=== PATIENT | female | born 1940 | race Caucasian/White ===

== ENCOUNTER 2017-07-20 20:43 | Inpatient (IN) | payer MEDICARE, BC, SELFPAY ==
[2017-07-20 20:44] VITALS: BP 191/126; PULSE 118; RESP 38; TEMP 37.6; O2SAT 75; BMI 30.8
[2017-07-20 20:48] VITALS: O2SAT 94
--- NOTE | 2017-07-20 20:49 | NURSING ---
RN CALLED FOR EKG, PULLED OLD EKG'S FOR
--- NOTE | 2017-07-20 21:07 | EKG12_ITS ---
Test Reason : CP Blood Pressure : / mmHG Vent. Rate : 116 BPM Atrial Rate : 116 BPM P-R Int : 148 ms QRS Dur : 082 ms QT Int : 280 ms P-R-T Axes : 017 -13 041 degrees QTc Int : 389 ms Sinus tachycardia with Premature atrial complexes Otherwise normal ECG Confirmed by SIGRID DILL ([id number]), rewrite editor ZAKIYA MORENO ([id number] on 07/23/2017 7:35:29 AM Referred By: CHANDU/ Confirmed By:SIGRID DILL
--- NOTE | 2017-07-20 21:07 | RAD_ITS ---
STUDY: X-RAY CHEST REASON FOR EXAM: Female, 76 years old. Shortness of breath, chest pain TECHNIQUE: PA and lateral views of the chest. COMPARISON: Previous study of 07/18/2017 FINDINGS: hospital monitor leads are present. There is a very poor inspiration. The left hemidiaphragm is markedly elevated. There is left basilar atelectasis. There is again noted gaseous distention of the stomach. There is no demonstrated pleural abnormality. Normal size heart. Normal mediastinum and yaneth. Normal visualized pulmonary arteries. There are calcified plaques of the aortic arch. Normal visualized thoracic spine. Normal visualized ribs, clavicles, and shoulders. A pigtail catheter is seen in the mid abdominal region. RAD/Chest 1 View (Portable) IMPRESSION: Very poor inspiration. Marked elevation of the left hemidiaphragm. Left basilar atelectasis. Gaseous distention of the stomach. Calcified plaques of the aortic arch. Chest findings are stable in the interval. Electronically Signed: Carlos Holguin MD at 21:58 EST , Service support ,
[2017-07-20 21:10] VITALS: O2SAT 93
[2017-07-20 21:31] LABS: Allen Test POS; Base Excess 1 mmol/L (-2 to +2); Bicarbonate 26.1 mmol/L (22-26); Blood Gas Specimen Type ART; O2 Delivery Device Nasal Can; PO2 67 mmHG (75-100); SITE R Radial; SO2 93 % (95-99); Time Given 2120; Total Carbon Dioxide 27 mmol/L; pCO2 44.1 mmHg (35-45); pH 7.38 (7.35-7.45)
[2017-07-20] MEDS: 0.9% Normal Saline 1,000 ML 1000 ML IV (21:39)
[2017-07-20 21:57] LABS: Absolute Lymphocyte Count 0.43 X10^3/ul (0.83-4.51); Absolute Neutrophil Count 23.3 X10^3/uL (2.0-7.7); Basophil# 0.01 X10^3/uL; Eosinophil# 0.01 X10^3/uL; Hemoglobin 11.2 g/dl (12.0-15.0); Lymphocyte # 0.43 X10^3/ul (4.0); Lymphocyte % 1.8 % (19-41); Mean Corpuscular Hgb 29.4 pg (27.0-32.0); Mean Corpuscular Volume 91.9 fL (81-99); Mean Platelet Vol. 10.8 fl (6.2-12.0); Monocyte# 0.41 X10^3/uL; Monocyte% 1.7 % (0-10); Neutrophil # 23.28 X10^3/uL (2.7-7.7); Neutrophil % 96.3 % (47-70); Platelet Count 266 K/mm3 (150-450); RBC Distribution Width CV 16.7 % (11.6-14.6); RBC Distribution Width SD 55.5 fl (35.1-43.9); Red Blood Count 3.81 M/mm3 (4.2-5.4); White Blood Count 24.2 K/mm3 (4.4-11.0)
[2017-07-20 21:59] LABS: International Normalized Ratio 1.9; Prothrombin Time (Protime)PT. 20.9 SECONDS (11.7-14.9)
[2017-07-20 22:00] LABS: Partial Thromboplast Time 54.6 Seconds (24.1-36.2)
[2017-07-20 22:03] LABS: Differential Indicated SCAN CRITERIA MET; POSITIVE COUNT NO; POSITIVE DIFFERENTIAL YES; POSITIVE MORPHOLOGY NO
--- NOTE | 2017-07-20 22:04 | CT_ITS ---
STUDY: CTA CHEST REASON FOR EXAM: Female, 76 years old. Chest pain, shortness of breath, elevated white blood count, upper arm DVTs RADIATION DOSAGE (If Supplied By Facility): CTDIvol = ( 8.83 ) mGy, DLP = ( 298.21 ) mGycm TECHNIQUE: The examination was performed with the intravenous administration of 75ML ml of Isovue 370 contrast material. Post-processing of the angiographic images was performed, with multiplanar reformation and 3D reconstruction. Individualized dose optimization techniques were used for this CT. COMPARISON: Prior study of 07/19/2017 FINDINGS: Normal enhancement of the main pulmonary artery and right and left pulmonary arteries. Normal enhancement of the bilateral peripheral pulmonary arteries. There is no demonstrated pulmonary embolism. There is tortuosity of the thoracic aorta. The ascending thoracic aorta is ectatic measuring up to 3.6 cm in diameter. There is no demonstrated aortic dissection. Normal heart and pericardium. There is again noted a subcarinal node measuring approximately 1.7 cm in short axis. Normal hilar regions. Normal visualized trachea and bronchi. There is a very poor inspiration. There is a markedly elevated left hemidiaphragm with underlying gaseous distention of the stomach. There is again noted a 1.2 cm nodule of the medial left upper lobe. Normal pleura. Normal chest wall structures. There are degenerative changes of the visualized thoracolumbar spine. There is old compression deformity with sclerosis of the superior endplate of L1. There is again demonstrated a large cystic focus of the left upper abdomen most likely representing a renal cyst. There are again noted innumerable low-attenuation foci involving the bulk of the hepatic parenchyma consistent with extensive metastatic disease. Status post cholecystectomy. The right kidney is atrophic and demonstrates numerous cysts. CT/CTA Chest W/WO Contrast IMPRESSION: 1. There is no evidence of pulmonary embolism. 2. There is a very poor inspiration. There is a markedly elevated left hemidiaphragm with underlying gaseous distention of the stomach. 3. There are again noted innumerable low-attenuation foci involving the bulk of the hepatic parenchyma consistent with extensive metastatic disease. 4. Other findings as reported above. Findings are similar to the previous day's study. Electronically Signed: Carlos Holguin MD at 23:52 EST , Service support ,
[2017-07-20 22:17] LABS: Anisocytosis RARE; Differential Comment SEE COMMENTS; Platelet Estimate ADEQUATE (ADEQ)
[2017-07-20 22:20] VITALS: BP 143/92; PULSE 100; RESP 35; O2SAT 94
[2017-07-20 22:27] LABS: ALB/GLOB Ratio 0.4 RATIO (0.9-2.4); AST(SGOT) 27 U/L (15-37); Alanine Aminotransfer ALT/SGPT 25 U/L (12-78); Albumin, Serum 1.9 g/dL (3.4-5.0); Alkaline Phosphatase 834 U/L (45-117); Anion Gap 10 (5-15); BUN 33 mg/dL (7-18); BUN/Creat Ratio 19.3 RATIO (10-20); Chloride 104 mmol/L (98-107); Creatinine, Serum 1.71 mg/dL (0.55-1.02); EST Glomerular Filtration Rate 31 mL/min (>60); Est Glom Filt Rate - Afr Amer 37 mL/min (>60); Estimated Creatinine Clearance 23.51 ml/min; Globulin 4.9 g/dL (2.2-4.2); Glucose 167 mg/dL (70-110); Potassium 3.4 mmol/L (3.5-5.1); Protein, Total 6.8 g/dL (6.4-8.2); Sodium Level 142 mmol/L (136-145)
--- NOTE | 2017-07-20 22:30 | CPS ---
This RT explained bipap to pt and how the pressures would be low to make her comfortable and relieve her WOB, pt refused bipap at this time, states she's tried it before and doesn't like it. Dr. Jasmine and JUAN Pritchard notified.
[2017-07-20 22:31] LABS: Lactic Acid 2.8 mmol/L (0.4-2.0)
--- NOTE | 2017-07-20 22:31 | NURSING ---
lab called with critical result of a lactic of 2.8
[2017-07-20] MEDS: 0.9% Normal Saline 1,000 ML 150 ML IV (22:46)
[2017-07-20] MEDS: LORazepam 2 MG/ML Syringe 0.5 MG IV (22:46)
--- NOTE | 2017-07-20 22:50 | ED.VISSUMM ---
- ER Visit Summary Date of Service: 07/20/17 Chief Complaint: Shortness of breath History of Present Illness: The patient is a 76 F who presents to the emergency department with shortness of breath. Patient has an extensive recent medical history. She has a medical history which includes metastatic colon cancer (2012) with metastatic extension to the left lung resulting in a left upper lobe lobectomy and left lower lobe wedge resection (2015). Patient had an ablation of a liver lesion on 06/08/2017. This was complicated by a visit on the emergency department on 06-23 where she presented with hypotension and anemia. She received blood transfusions and on abdominal CT A Bill Kalpana was discovered and she underwent CT-guided drain placement. Hemoglobin continues to drop and she underwent an ERCP with biliary stent on 06/25/2017. This was complicated by deterioration and respiratory failure. 06-26 she underwent intervention for duodenal bleed. She had a second endoscopy on 1127 and had clipping of the vessels. Right posterior tibial peroneal calf clots were noted on 06-30. She also developed upper extremity DVT. Eventually she was discharged to halfway facility. Yesterday the patient underwent a CTA for dyspnea. This was negative for PE. Was noted to have significant metastatic disease. Her tells me that he was told that with the biopsied at the clinic from her liver was benign. states that she was started on Eliquis today. Patient tells me that tonight at approximately 1900 hrs. she has sudden onset of midsternal chest pain and shortness of breath. Noted to be 75% on room air. She was significantly tachycardic in the 120-150 range. Respiratory rate in the 40s. Respiratory therapist tells me that earlier she gave the patient a breathing treatment and seemed to help her. But her current presentation is significantly different than what she was in TCU. Physical Examination: Temperature 99.6. 75% on room air. Tachycardic at 125. Respiratory rate of 45. Gen: Well-nourished well-developed patient appears in respiratory distress Head: Normocephalic atraumatic Eyes: Perrl EOMI ENT: TMs clear no rhinorrhea moist mucous membranes Neck: Supple no lymphadenopathy no JVD nontender CVS: Tachycardic rhythm no murmurs normal S1-S2 Respiratory: Moderate distress clear to auscultation bilaterally chest nontender diminished breath sounds on left Abdomen: Soft nondistended normal bowel sounds no masses Back: Nontender Extremity: Nontender Skin: Patient appears slightly jaundiced Neuro: alert orientated ?3 CN II-XII intact normal strength sensation reflexes gait cerebellar Psych: Patient is anxious Test Results: EKG sinus rhythm at a rate of 116. White count 24.2. BUN of 33 with a creatinine 1.71. Lactic acid 2.8. INR 1.9. Alk phos 834. Total bili 5.1. Troponin less than 0.02. Chest x-ray no obvious acute pattern. CTA of the chest is negative for pulmonary embolism or infiltrate. Emergency Department Course and Treatment: Patient underwent IV fluids. She received Ativan 0.5 mg at her request to help with anxiety to see if she would tolerate bipap and morphine to help her back pain so she can lay flat for CTA. Patient has steadily declined in the emergency department. Her oxygen demand has steadily increased. She is now on a nonrebreather. Her blood pressure continues to decline. Patient now has agonal breathing. She is minimally responsive to pain. and I had a prolonged conversation. We are waiting the couple's daughters to come to the emergency department as I believe this is a life or situation. All the family has arrived and the decision was made to make her comfortable using the DNR Comfort Care Only protocol. Dr. Christine will be admitting. Impression: 1. Acute respiratory failure 2. Metastatic colon cancer 3. Critical care time 35 minutes This note was generated with [employer] dictation software. It may contain incorrect words, spelling, and punctuation that were not noted in review of the chart prior to signing ED Disposition - Plan for ED Patient: Disposition: Acute Care Hospital [facility] Chief Complaint: Chest Pain
--- NOTE | 2017-07-20 22:55 | ED.DCSUM_ITS ---
- ER Visit Summary Date of Service: 07/20/17 Chief Complaint: Shortness of breath History of Present Illness: The patient is a 76 F who presents to the emergency department with shortness of breath. Patient has an extensive recent medical history. She has a medical history which includes metastatic colon cancer (2012 ) with metastatic extension to the left lung resulting in a left upper lobe lobectomy and left lower lobe wedge resection (2015). Patient had an ablation of a liver lesion on 06/08/2017. This was complicated by a visit on the emergency department on 06-23 where she presented with hypotension and anemia. She received blood transfusions and on abdominal CT A Bill Kalpana was discovered and she underwent CT-guided drain placement. Hemoglobin continues to drop and she underwent an ERCP with biliary stent on 06/25/2017. This was complicated by deterioration and respiratory failure. 06-26 she underwent intervention for duodenal bleed. She had a second endoscopy on 1127 and had clipping of the vessels. Right posterior tibial peroneal calf clots were noted on 06-30. She also developed upper extremity DVT. [facility] Yesterday the patient underwent a CTA for dyspnea. This was negative for PE. Was noted to have significant metastatic disease. Her tells me that he was told that with the biopsied at the clinic from her liver was benign. states that she was started on Eliquis today. Patient tells me that tonight at approximately 1900 hrs. she has sudden onset of midsternal chest pain and shortness of breath. Noted to be 75% on room air. She was significantly tachycardic in the 120-150 range. Respiratory rate in the 40s. Respiratory therapist tells me that earlier she gave the patient a breathing treatment and seemed to help her. But her current presentation is significantly different than what she was in TCU. Physical Examination: Temperature 99.6. 75% on room air. Tachycardic at 125. Respiratory rate of 45. Gen: Well-nourished well-developed patient appears in respiratory distress Head: Normocephalic atraumatic Eyes: Perrl EOMI ENT: TMs clear no rhinorrhea moist mucous membranes Neck: Supple no lymphadenopathy no JVD nontender CVS: Tachycardic rhythm no murmurs normal S1-S2 Respiratory: Moderate distress clear to auscultation bilaterally chest nontender diminished breath sounds on left Abdomen: Soft nondistended normal bowel sounds no masses Back: Nontender Extremity: Nontender Skin: Patient appears slightly jaundiced Neuro: alert orientated ?3 CN II-XII intact normal strength sensation reflexes gait cerebellar Psych: Patient is anxious Test Results: EKG sinus rhythm at a rate of 116. White count 24.2. BUN of 33 with a creatinine 1.71. Lactic acid 2.8. INR 1.9. Alk phos 834. Total bili 5.1. Troponin less than 0.02. Chest x-ray no obvious acute pattern. CTA of the chest is negative for pulmonary embolism or infiltrate. Emergency Department Course and Treatment: Patient underwent IV fluids. She received Ativan 0.5 mg at her request to help with anxiety to see if she would tolerate bipap and morphine to help her back pain so she can lay flat for CTA. Patient has steadily declined in the emergency department. Her oxygen demand has steadily increased. She is now on a nonrebreather. Her blood pressure continues to decline. Patient now has agonal breathing. She is minimally responsive to pain. and I had a prolonged conversation. We are waiting the couple's daughters to come to the emergency department as I believe this is a life or situation. All the family has arrived and the decision was made to make her comfortable using the DNR Comfort Care Only protocol. Dr. Christine will be admitting. Impression: 1. Acute respiratory failure 2. Metastatic colon cancer 3. Critical care time 35 minutes This note was generated with [employer] dictation software. It may contain incorrect words, spelling, and punctuation that were not noted in review of the chart prior to signing ED Disposition - Plan for ED Patient: Disposition: Acute Care Hospital [facility] Chief Complaint: Chest Pain
[2017-07-20 23:54] VITALS: BP 91/59; PULSE 87; RESP 26; O2SAT 97
[2017-07-21] VITALS (11 sets, daily range): BP systolic 81–129; BP diastolic 50–73; PULSE 85–107; RESP 12–28; TEMP 36–37.8; O2SAT 65–97; BMI 30.8; BMI 30.9
[2017-07-21] MEDS: Glycopyrrolate 0.2 MG/ML Vial 0.1 MG IV (01:01)
--- NOTE | 2017-07-21 01:10 | NURSING ---
me and the doctor talked with the family about what the family wanted to do with the pt because she is progressively declining as she has been in the ER. The family agreed that we are going to make her comfortable and we talked with the hospitalist about making her a comfort care. giving the pt medication to help relax her and assist with her breathing. pt taken off nonrebreather and back on 2 liters of nasal cannula.
[2017-07-21 01:34] LABS: Reflex Lactate? Y
--- NOTE | 2017-07-21 01:49 | PCM.HP.STD ---
Problem List (1) Severe sepsis Status: Acute (2) Asthma Status: Chronic (3) Benign hypertension Status: Chronic (4) Obesity Status: Chronic (5) H/O adult polycystic kidney disease Status: Chronic (6) Supraventricular tachycardia Status: Chronic (7) Metastatic colon cancer in female Status: Chronic (8) Colon cancer metastasized to lung Status: Chronic (9) Polycystic kidney disease Status: Chronic (10) Ileus Status: Resolved (11) Acute diarrhea Status: Resolved (12) Nausea and vomiting Status: Resolved (13) Hypertension Status: Chronic (14) Pneumonia Status: Resolved (15) Dehydration Status: Resolved (16) Hypotension Status: Resolved (17) Gastrointestinal bleed Status: Chronic (18) DVT (deep venous thrombosis) Status: Chronic (19) Osteoporosis Status: Chronic (20) Migraine Status: Chronic (21) Colon cancer Status: Chronic History of Present Illness Date of Admission: 07/21/17 Chief Complaint: Shortness of breath The patient is a 76 year old F with a known history of stage IV lung cancer. Presents from shortness of breath from the transitional care unit. Patient was recently discharged from the [facility] where she had a very extensive workup and procedures. Vision was noted to be 75% on room air. Roughly 1900 hrs. on the patient was developed shortness of breath and chest pain. Patient was barely having agonal respirations. After long discussion with the family patient was made DNR Comfort Care and cover treatments were initiated in the emergency room. Plan is for the patient to be admitted under comfort care and to treat her symptoms. Family is aware that is imminent. Family is obtunded on a provide any history. [] Past Medical History Past Medical History (Chronic Problems): Chronic Problems Asthma (Chronic) Benign hypertension (Chronic) Obesity (Chronic) H/O adult polycystic kidney disease (Chronic) Supraventricular tachycardia (Chronic) Metastatic colon cancer in female (Chronic) Colon cancer metastasized to lung (Chronic) Polycystic kidney disease (Chronic) Hypertension (Chronic) Gastrointestinal bleed (Chronic) DVT (deep venous thrombosis) (Chronic) Osteoporosis (Chronic) Migraine (Chronic) Colon cancer (Chronic) Allergies meloxicam Allergy (Intermediate, Verified 07/20/17 20:49) Other butorphanol tartrate [From Stadol] Allergy (Mild, Verified 07/20/17 20:49) Itching hydromorphone HCl [From Dilaudid] Allergy (Mild, Verified 07/20/17 20:49) Itching propoxyphene HCl [From Darvon] Allergy (Mild, Verified 07/20/17 20:49) Itching verapamil Allergy (Verified 07/20/17 20:49) Unknown acetaminophen [From Vicodin] Adverse Reaction (Intermediate, Verified 07/20/17 20:49) Nausea/Vom/Diarrhea hydrocodone bitartrate [From Vicodin] Adverse Reaction (Intermediate, Verified 07/20/17 20:49) Nausea/Vom/Diarrhea Sulfa (Sulfonamide Antibiotics) Adverse Reaction (Intermediate, Verified 07/20/17 20:49) Other HEADACHE lisinopril [From Zestril] Adverse Reaction (Mild, Verified 07/20/17 20:49) Other COUGH clonidine Adverse Reaction (Verified 07/20/17 20:49) Other Home Medications: Ambulatory Orders Medication Instructions Recorded Tiotropium [place] [Spiriva 18 MCG] 1 puff INHALATION DAILY 01/09/16 Acetaminophen [Tylenol Tablet] 1,000 mg PO Q8H PRN PRN 02/02/16 Ondansetron [Zofran] 4 mg PO Q8H PRN PRN 02/02/16 Lorazepam [Ativan] 0.5 mg PO QHS PRN PRN #30 tablet 03/06/16 Ergocalciferol [Vitamin D] 50,000 unit PO Q14D 07/13/17 Furosemide [Lasix] 20 mg PO DAILY 07/13/17 Levothyroxine [Synthroid] 100 mcg PO DAILY@0600 07/13/17 Metoprolol Tartrate [Lopressor] 100 mg PO BID 07/13/17 Montelukast Sodium [Singulair] 10 mg PO DAILY 07/13/17 Oxycodone [Oxyir] 5 mg PO Q6H PRN PRN 07/13/17 Pantoprazole Sodium [Protonix] 40 mg PO BID 07/13/17 Apixaban [Eliquis] 2.5 mg PO BID 07/20/17 Bisacodyl [Dulcolax] 5 mg PO DAILY PRN PRN 07/20/17 Clotrimazole/Betamethasone 1 applic TOPICAL BID 07/20/17 [Lotrisone] Ensure Clear 120 ml PO 4X/DAY 07/20/17 Fluticasone 0.05% [Flonase Nasal 2 spray NASAL DAILY 07/20/17 [place]] Ipratropium/Albuterol Sulfate 3 ml INHALATION Q4H.RT 07/20/17 [Duoneb] Losartan Potassium [Cozaar] 50 mg PO DAILY 07/20/17 Menthol/Lanolin/Calamine/Znox 1 applic TP TID 07/20/17 [Calmoseptine Ointment] Nystatin 500,000 unit PO 4X/DAY 07/20/17 Nystatin Powder [Mycostatin Powder] 1 applic TOPICAL TID 07/20/17 Polyethylene Glycol 3350 [Miralax] 17 gm PO DAILY 07/20/17 Rizatriptan Benzoate [Maxalt Evaluation Analyst] 10 mg PO PRN PRN 07/20/17 Senna/Docusate Sodium [Senokot-S, 2 tablet PO BID 07/20/17 Rama-Colace] Surgical History: appendectomy, cholecystectomy, hysterectomy, - - partial colon resection, lung surgery. 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 Afebrile. Agonal respirations. HEENT: Atraumatic, Normocephalic, - - Probable wasting Neck: No Nodes, Thyroid Normal Size and Texture Lungs: Diminished, - - Coarse breath sounds bilaterally Cardiovascular: Regular rate, Regular Rhythm, Normal S1, Normal S2 Abdomen: Hypoactive Bowel Sounds, Hepatomegaly, Splenomegaly, - - Bones in discomfort when I mildly palpate her abdomen Extremities: No edema, No Calf Tenderness Skin: No rashes, No breakdown Psych/Mental Status: Normal Affect, Appropriate Vital Signs Temp Pulse Resp BP Pulse Ox 37.6 C H 93 22 H 81/63 L 65 07/20/17 20:44 07/21/17 01:32 07/21/17 01:32 07/21/17 01:32 07/21/17 01:32 Oxygen Flow Rate 2 Oxygen Delivery Method Nasal Cannula Weight: 79 kg Body Mass Index (BMI) 30.8 Intake and Output for Last 24 Hours 07/19/17 07/20/17 07/21/17 23:59 23:59 23:59 Output Total 100 / 100 Balance -100 / -100 Laboratory Tests Past 24 Hrs 07/20/17 07/20/17 07/20/17 21:25 21:30 21:30 WBC 24.2 H RBC 3.81 L Hgb 11.2 L Hct 35.0 L MCV 91.9 MCH 29.4 MCHC 32.0 RDW 16.7 H RDW Differential 55.5 H Plt Count 266 MPV 10.8 Immature Gran % (Auto) 0.200 Neut % (Auto) 96.3 H Lymph % (Auto) 1.8 L Gr[place]gs % (Auto) 1.7 Eos % (Auto) 0.0 Baso % (Auto) 0.0 Absolute Neuts (auto) 23.3 H Absolute Lymphs (auto) 0.43 L Total Counted Not Reportable Differential Comment SEE COMMENTS Platelet Estimate ADEQUATE Anisocytosis RARE PT 20.9 H INR 1.9 APTT 54.6 H Specimen Type ART Sample Site R Radial pH 7.38 Bicarbonate Actual 26.1 H POC Total CO2 27 Base Excess 1 O2 Saturation 93 L ABG pCO2 44.1 ABG pO2 67 L Dedrick Test POS O2 Delivery Device Nasal Can Liter Flow 6.0 Blood Gas Notified Whom ED Blood Gas Notified Time 2119 Sodium Potassium Chloride Carbon Dioxide Anion Gap BUN Creatinine Estim Creat Clear Calc Est GFR (MDRD) Af Amer Est GFR (MDRD) Non-Af BUN/Creatinine Ratio Glucose Lactic Acid Calcium Total Bilirubin AST ALT Alkaline Phosphatase Troponin I Total Protein Albumin Globulin Albumin/Globulin Ratio 07/20/17 07/20/17 21:30 21:30 WBC RBC Hgb Hct MCV MCH MCHC RDW RDW Differential Plt Count MPV Immature Gran % (Auto) Neut % (Auto) Lymph % (Auto) Griggs % (Auto) Eos % (Auto) Baso % (Auto) Absolute Neuts (auto) Absolute Lymphs (auto) Total Counted Differential Comment Platelet Estimate Anisocytosis PT INR APTT Specimen Type Sample Site pH Bicarbonate Actual POC Total CO2 Base Excess O2 Saturation ABG pCO2 ABG pO2 Dedrick Test O2 Delivery Device Liter Flow Blood Gas Notified Whom Blood Gas Notified Time Sodium 142 Potassium 3.4 L Chloride 104 Carbon Dioxide 28.0 Anion Gap 10 BUN 33 H Creatinine 1.71 H Estim Creat Clear Calc 23.51 Est GFR (MDRD) Af Amer 37 L Est GFR (MDRD) Non-Af 31 L BUN/Creatinine Ratio 19.3 Glucose 167 H Lactic Acid 2.8 H Calcium 8.0 L Total Bilirubin 5.10 H AST 27 ALT 25 Alkaline Phosphatase 834 H Troponin I < 0.02 Total Protein 6.8 Albumin 1.9 L Globulin 4.9 H Albumin/Globulin Ratio 0.4 L Assessment/Plan Active and Suspected Problems Severe sepsis (Acute) 1. Severe sepsis Unclear etiology. I am not sure that the patient has had a catastrophic event this event so sudden in onset.. CT of the chest did not pick up driver anything of the metastatic disease. No further infectious workup will be performed. 2. Stage IV colon cancer patient will be having comfort care Initiated. 3. Prognosis: Poor Expect patient to within hours to days. Family was present at bedside. They understand the terminal prognosis. No additional workup will be performed. Comfort measures are being initiated. Code Visit Inpatient E&M: 32658 Init Hosp L2
--- NOTE | 2017-07-21 02:18 | ED.RN ---
spoke with DR. Christine about lactic acid orders. Dr. Christine is fine with holding all further lactic acid orders at this time since patient is prasad made comfort care
--- NOTE | 2017-07-21 05:43 | NURSING ---
VSA not completed, pt actively dying and vitals refused by family.
--- NOTE | 2017-07-21 09:36 | CASEMGMT ---
Addendum entered by Leighann Dominique 07/21/17 09:45: JUAN SNELL updated the patient's family regarding canceled appointment at [facility]. Original Note: JUAN SNELL called Dr. Puentes's office at [facility] and cancelled appointment scheduled for today.
--- NOTE | 2017-07-21 12:12 | CT_ITS ---
STUDY: CT ABDOMEN AND PELVIS WITHOUT CONTRAST REASON FOR EXAM: Female, 76 years old. Severe sepsis. Bile duct leak and biliary stent. History of metastatic colon cancer. Polycystic kidney disease. RADIATION DOSAGE (If Supplied By Facility): CTDIvol = ( 17.19 ) mGy, DLP = ( 1080.28 ) mGycm TECHNIQUE: Transaxial images were obtained from the dome of the diaphragm to the symphysis pubis without oral contrast, and without intravenous contrast. Sagittal and coronal images were reconstructed. Individualized dose optimization techniques were used for this CT. COMPARISON: Comparison is made with prior examination dated February 07, 2016. FINDINGS: Elevation of the right hemidiaphragm due to hepatomegaly. Increased markings at the lung bases suggest bibasilar atelectasis. Small right pleural effusion. Hepatomegaly. Multiple cystic masses are seen in the liver in keeping with the patient's history of polycystic kidney disease and hepatic cysts. The patient is status post cholecystectomy. Surgical clips are seen in the giovanny hepatis in the region of the head of the pancreas. Metallic clips are also seen in the right lobe of the liver. Is evidence of pneumobilia in keeping with prior cholecystectomy and the biliary stent placement. Normal spleen. Normal pancreas. Normal bilateral adrenal glands. Enlargement of both kidneys. Multiple cysts are seen in both kidneys worse on the left side. There is evidence of parenchymal thinning of the kidneys. Gaseous distention of the stomach. Normal small intestine. Normal colon. The appendix is visualized and appears normal. There is diffuse atherosclerotic calcification of the abdominal aorta, without a demonstrated aneurysm. Normal inferior vena cava. Normal retroperitoneum. A Brownlee catheter is seen within the urinary bladder. Small amount of free fluid is seen in the pelvis. Normal abdominal wall. Loss of height of the L1 vertebrae. CT/Abdomen/Pelvis without Cont IMPRESSION: Hepatomegaly. Multiple cysts are seen in the liver. Enlarged kidneys with multiple bilateral cysts. Prior cholecystectomy. Surgical clips are seen in the region of the giovanny hepatis. Pneumobilia. A small amount of free fluid is seen in the pelvis. Electronically Signed: James Werner MD at 14:26 EST Tel [phone], Service support ,
--- NOTE | 2017-07-21 12:24 | PCM.PROGNOTE ---
Patient Problems: Active and Suspected Problems Severe sepsis (Acute) Subjective: Patient is a 76-year-old female with history of colon cancer metastatic to lung and liver. She was recently at [facility] for ERCP with stent and a liver biopsy which was negative for malignancy. At [place] from [facility] she was transferred to [facility] for strengthening and rehab prior to going home. She follows with Dr. Tristan and last saw him 2 months ago. Her past medical history is significant for asthma, hypertension, polycystic kidney and liver disease, SVT, DVT, osteoporosis, migraines and history of GI bleeds. She was sent to the emergency room from [facility] last night with a pulse ox of 75% on room air. She was short of breath and complained of chest pain on the . The history and physical note states that the patient was having agonal respirations and discussion was held with her and patient was made DNR comfort care. Lab done on 07/20 showed an elevated white blood cell count at 24.2 with a marked left shift. Hemoglobin was 11.2 and platelets were within normal limits. ABG done on a 6 L nasal cannula showed a pH of 7.38 with PCO2 of 44 and a PO2 of 67. BUN was 33 and the creatinine was elevated at 1.71( from 1.1 at admisison to the TCU). Orders for comfort medications were instituted at admission. She was afebrile this morning and the blood pressure was borderline at 95 over 65-104/50 and she was given 2 L of normal saline bolus. The most recent blood pressure is 129/69. She is 97% saturated on a 4 L nasal cannula but the respiratory rate is 28. She is taking rapid shallow breaths. She wakes up for a brief period of time and was able to shake her head yes and no to a few questions. Her and dtr were in the room and they wanted to know what the plan was since she had survived the Night. I contacted Dr. Agrawal who is covering for Dr. Tristan and he reviewed her hx with me.......apparently she has had all areas of malignancy resected.....she has had a MIROSLAVA resection and a wedge resection from the LLL. She had a partial colectomy. The most recent liver bx was negative. She has had a bile leak in the past. Dr. Agrawal suggested we transfer to the [facility] but, the and dtr stated their experience at the [facility] was not a good one and they preferred to be treated at [facility]. CT of the abd and pelvis was done and was unremarkable for any acute findings. UA was sent on a catheterized specimen and she had greater than 100 WBCs per high-power field with 3+ bacteria. The urine was a dark orange and it was cloudy and purulent in appearance. The bili is 5.1 with an alkaline phosphatase of 834 and the AST and ALT are within normal limits. Lactic acid was 2.8 at admission but this a.m. was 1.0 and that was prior to antibiotics. PT is increased at 20.9 and the INR is 1.9. PTT is elevated at 54.6. She has been taking apixaban for history of venous thromboembolism likely related to malignancy. Apixaban is being held. - Physical Exam General: Confused, Lethargic HEENT: Atraumatic, PERRLA, Normocephalic Oral: Dry Mucosa Neck: Supple, No Nodes, No Nuchal Rigidity, Trachea Midline Lungs: - - There are no breath sounds heard on the left side anteriorly. On the right side she has good air exchange with no wheezing and no rales. There were no rhonchi. She is taking rapid shallow breaths. She is able to take a deep breath when instructed. She had no accessory muscle use. Cardiovascular: Regular rate, Regular Rhythm, Normal S1, Normal S2, No murmurs, No rub noted, No Gallop Abdomen: Bowel Sounds Present, Soft, Non-Distended, - - No guarding with palpation Extremities: No clubbing, No cyanosis, No edema Skin: No rashes, No breakdown Neurological: Cranial nerves II-XII grossly intact, - - no focal neurologic deficits Vital Signs Temp Pulse Resp BP Pulse Ox 96.8 F L 85 20 H 104/50 L 96 07/21/17 11:18 07/21/17 11:18 07/21/17 11:18 07/21/17 11:18 07/21/17 11:18 Oxygen Flow Rate 2 Oxygen Delivery Method Nasal Cannula Weight: 174 lb 2.643 oz Body Mass Index (BMI) 30.8 Intake and Output for Last 24 Hours 07/19/17 07/20/17 07/21/17 23:59 23:59 23:59 Intake Total 0 / 0 Output Total 90 / 90 Balance -90 / -90 Assessment/Plan Active and Suspected Problems Severe sepsis (Acute) Impressions 1. severe sepsis - due to UTI 2. Metabolic encephalopathy secondary to infection, possible liver failure. will need to get the most recent liver profile done at the [facility] 3. hx of colon [place] with mets to the liver and the Left Lung...S/P upper lobe lobectomy and wedge resection of the left lower lobe in 2015. Recent liver biopsy at [facility] main campus was negative for malignancy 4. Polycystic liver and kidney disease 5. Hyperbilirubinemia and increased alkaline phosphatase-secondary to cholestasis with normal transaminases 6. Coagulopathy-secondary to apixaban 7. History of asthma 8. Hypertension 9. History of SVT 10. Hypotension-resolved with fluid resuscitation 11. History of DVT-on apixaban She has been started on Zosyn. Will check the ammonia level in the a.m. and also repeat the CMP, PT/INR, mag, [place] and CBC with differential I discussed her CODE STATUS with her and he does not want intubation or mechanical ventilation. He also does not want CPR. CODE STATUS was made DNR CC arrest. He requests that we keep her at [facility] and since the CT scan of the abdomen/pelvis Is unremarkable and the sepsis seems secondary to urinary tract infection we will keep her at [facility]. Prognosis is guarded. Code Visit Inpatient E&M: 64384 Subs Hosp L3
--- NOTE | 2017-07-21 12:28 | PN_ITS ---
Patient Problems: Active and Suspected Problems Severe sepsis (Acute) Subjective: Patient is a 76-year-old female with history of colon cancer metastatic to lung and liver. She was recently at [facility] for ERCP with stent and a liver biopsy which was negative for malignancy. At [place] from [facility] she was transferred to [facility] for strengthening and rehab prior to going home. She follows with Dr. Tristan and last saw him 2 months ago. Her past medical history is significant for asthma, hypertension, polycystic kidney and liver disease, SVT, DVT, osteoporosis, migraines and history of GI bleeds. She was sent to the emergency room from [facility] last night with a pulse ox of 75% on room air. She was short of breath and complained of chest pain on the . The history and physical note states that the patient was having agonal respirations and discussion was held with her and patient was made DNR comfort care. Lab done on 07/20 showed an elevated white blood cell count at 24.2 with a marked left shift. Hemoglobin was 11.2 and platelets were within normal limits. ABG done on a 6 L nasal cannula showed a pH of 7.38 with PCO2 of 44 and a PO2 of 67. BUN was 33 and the creatinine was elevated at 1.71( from 1.1 at admisison to the TCU). Orders for comfort medications were instituted at admission. She was afebrile this morning and the blood pressure was borderline at 95 over 65-104/50 and she was given 2 L of normal saline bolus. The most recent blood pressure is 129/69. She is 97% saturated on a 4 L nasal cannula but the respiratory rate is 28. She is taking rapid shallow breaths. She wakes up for a brief period of time and was able to shake her head yes and no to a few questions. Her and dtr were in the room and they wanted to know what the plan was since she had survived the Night. I contacted Dr. Agrawal who is covering for Dr. Tristan and he reviewed her hx with me.......apparently she has had all areas of malignancy resected.....she has had a MIROSLAVA resection and a wedge resection from the LLL. She had a partial colectomy. The most recent liver bx was negative. She has had a bile leak in the past. Dr. Agrawal suggested we transfer to the [facility] but, the and dtr stated their experience at the [facility] was not a good one and they preferred to be treated at [facility]. CT of the abd and pelvis was done and was unremarkable for any acute findings. UA was sent on a catheterized specimen and she had greater than 100 WBCs per high-power field with 3+ bacteria. The urine was a dark orange and it was cloudy and purulent in appearance. The bili is 5.1 with an alkaline phosphatase of 834 and the AST and ALT are within normal limits. Lactic acid was 2.8 at admission but this a.m. was 1.0 and that was prior to antibiotics. PT is increased at 20.9 and the INR is 1.9. PTT is elevated at 54.6. She has been taking apixaban for history of venous thromboembolism likely related to malignancy. Apixaban is being held. - Physical Exam General: Confused, Lethargic HEENT: Atraumatic, PERRLA, Normocephalic Oral: Dry Mucosa Neck: Supple, No Nodes, No Nuchal Rigidity, Trachea Midline Lungs: - - There are no breath sounds heard on the left side anteriorly. On the right side she has good air exchange with no wheezing and no rales. There were no rhonchi. She is taking rapid shallow breaths. She is able to take a deep breath when instructed. She had no accessory muscle use. Cardiovascular: Regular rate, Regular Rhythm, Normal S1, Normal S2, No murmurs, No rub noted, No Gallop Abdomen: Bowel Sounds Present, Soft, Non-Distended, - - No guarding with palpation Extremities: No clubbing, No cyanosis, No edema Skin: No rashes, No breakdown Neurological: Cranial nerves II-XII grossly intact, - - no focal neurologic deficits Vital Signs Temp Pulse Resp BP Pulse Ox 96.8 F L 85 20 H 104/50 L 96 07/21/17 11:18 07/21/17 11:18 07/21/17 11:18 07/21/17 11:18 07/21/17 11:18 Oxygen Flow Rate 2 Oxygen Delivery Method Nasal Cannula Weight: 174 lb 2.643 oz Body Mass Index (BMI) 30.8 Intake and Output for Last 24 Hours 07/19/17 07/20/17 07/21/17 23:59 23:59 23:59 Intake Total 0 / 0 Output Total 90 / 90 Balance -90 / -90 Assessment/Plan Active and Suspected Problems Severe sepsis (Acute) Impressions 1. severe sepsis - due to UTI 2. Metabolic encephalopathy secondary to infection, possible liver failure. will need to get the most recent liver profile done at the [facility] 3. hx of colon [place] with mets to the liver and the Left Lung...S/P upper lobe lobectomy and wedge resection of the left lower lobe in 2015. Recent liver biopsy at [facility] main campus was negative for malignancy 4. Polycystic liver and kidney disease 5. Hyperbilirubinemia and increased alkaline phosphatase-secondary to cholestasis with normal transaminases 6. Coagulopathy-secondary to apixaban 7. History of asthma 8. Hypertension 9. History of SVT 10. Hypotension-resolved with fluid resuscitation 11. History of DVT-on apixaban She has been started on Zosyn. Will check the ammonia level in the a.m. and also repeat the CMP, PT/INR, mag, [place] and CBC with differential I discussed her CODE STATUS with her and he does not want intubation or mechanical ventilation. He also does not want CPR. CODE STATUS was made DNR CC arrest. He requests that we keep her at [facility] and since the CT scan of the abdomen/pelvis Is unremarkable and the sepsis seems secondary to urinary tract infection we will keep her at [facility]. Prognosis is guarded. Code Visit Inpatient E&M: 08389 Subs Hosp L3
[2017-07-21] MEDS: 0.9% Normal Saline 1,000 ML 999 ML IV (12:37)
[2017-07-21 12:58] LABS: Mucous, Urine 0 SEEN /hpf (<or=2+); Red Blood Cells-Urine 0 SEEN /hpf (0-5); Squamous Epithelial Cells - UA 0 SEEN /hpf (5-10)
[2017-07-21 13:00] LABS: Bedside Glucose 88 mg/dL (70-110)
[2017-07-21 13:03] LABS: Color, Urine Amber (Yellow); Glucose, Dipstick Normal (Normal); Ketone-Dipstick Negative (Negative); Leukocyte Esterase-Dipstick 500 /ul (Negative); Nitrite-Dipstick Negative (Negative); Occult Blood-Urine 25 /ul (Negative); Protein-Dipstick 30 mg/dl (Negative); Specific Gravity, Urine 1.015 (1.002-1.030); Urine Clarity Cloudy (Clear); Urine Urobilinogen 1 mg/dl (Normal)
[2017-07-21 13:05] LABS: Urine Bilirubin Dipstick 3 mg/dL (Negative)
[2017-07-21 13:16] LABS: Bacteria 3+ /hpf (None Seen); White Blood Cells >100 SEEN /hpf (0-5)
[2017-07-21 16:01] LABS: Bedside Glucose 94 mg/dL (70-110)
--- NOTE | 2017-07-21 16:28 | NURSING ---
venti mask placed on pt per dr lo orders. pt pulling off mask and would not leave it on. nc 4l replaced on pt.
--- NOTE | 2017-07-21 20:30 | CPS ---
pt not leaving NRB mask on. Pt on 4L NC. Pt appears SOB and is working to breathe. SKEIN WINDER explained CPAP/BIPAP to and he refused that.
[2017-07-21] MEDS: Ipratropium/Albuterol Sulfate 3 ML AMPUL.NEB INHALATION (20:42)
--- NOTE | 2017-07-21 21:21 | NURSING ---
At the request of Dr. Harvey, I went back to speak with the of this pt to discuss what he would want done for his if things turn bad. I talked to him about chest compressions and the need for intubation if a code would happen. Advised him we would need to change her code status if he wants compressions and intubation. He advised that we will just leave things as they are. No code status change is necessary at this time. I allowed him to ask questions and advised him I would check on him frequently throughout the night.
[2017-07-21] MEDS: Piperacil/Tazobactam 3.375 GM/50 ML ML IV (23:39)
[2017-07-22] VITALS (9 sets, daily range): BP systolic 103–145; BP diastolic 58–81; PULSE 92–108; RESP 18–32; TEMP 36.4–36.7; O2SAT 88–94
[2017-07-22] MEDS: Piperacil/Tazobactam 3.375 GM/50 ML ML IV (06:11)
[2017-07-22] MEDS: Ipratropium/Albuterol Sulfate 3 ML AMPUL.NEB INHALATION ×4 (06:37→18:44)
[2017-07-22 07:21] LABS: Bedside Glucose 72 mg/dL (70-110)
--- NOTE | 2017-07-22 07:30 | PCM.PROGNOTE ---
Subjective: Patient diagnosed with severe sepsis secondary to urinary tract infection. 2 of 2 blood cultures are positive for gram-negative rods. Urine is growing a gram-negative jalen. T-max is 100?F. Blood pressure is stable and her respiratory rate has been improving throughout the day. He is 92% saturated on a 4 L nasal cannula. Fluid balance since admission is +3476. Bilirubin and alkaline phosphatase are both decreasing. Her daughter states that the jaundice and scleral icterus just recently developed and today she states it looks better. The albumin is 1.6 and patient is third spacing fluids. Ammonia level was 13. Electrolytes are unremarkable. BUN is 43 with a creatinine of 2.14. Fractional excretion of sodium is 0.09 which is consistent with prerenal azotemia. Magnesium is low at 1.6 today. she is alert today but confused. Can not recall what is said to her after just a few minutes. She is less tachypneic. When I asked her if she was SOB she said yes and told me she only has 1 lung - Physical Exam General: Confused, Lethargic HEENT: Atraumatic, PERRLA, Normocephalic Oral: Dry Mucosa Neck: Supple, Trachea Midline Lungs: Diminished, Tachypneic, - - Poor inspiratory effort, rapid shallow respirations. Accessory muscle use. Not able to follow commands today. Cardiovascular: Regular Rhythm, Normal S1, Normal S2, No Gallop, Tachycardic Abdomen: Soft, Hypoactive Bowel Sounds, Distended - Distention is less today., - - No guarding with palpation Extremities: No edema Skin: No rashes Vital Signs Temp Pulse Resp BP Pulse Ox 98.0 F 93 24 H 107/64 93 07/22/17 03:51 07/22/17 03:51 07/22/17 03:51 07/22/17 03:51 07/22/17 03:51 Oxygen Flow Rate 4 Oxygen Delivery Method Nasal Cannula Weight: 174 lb 2.643 oz Body Mass Index (BMI) 30.8 Intake and Output for Last 24 Hours 07/20/17 07/21/17 07/22/17 23:59 23:59 23:59 Intake Total 1702 / 1702 1416 / 1416 Output Total 440 / 440 175 / 175 Balance 1262 / 1262 1241 / 1241 Microbiology Past 72 Hours 07/21/17 14:10 Blood Culture - Preliminary Blood Culture (Wb) - Left Hand 07/21/17 12:45 Blood Culture - Preliminary Blood Culture (Wb) - Wrist Laboratory Tests Past 24 Hrs 07/21/17 07/21/17 07/21/17 12:40 12:45 12:45 Hemoglobin A1c 5.0 Lactic Acid 1.0 Ammonia Urine Color Amanda Urine Clarity Cloudy Urine pH 5.0 Ur Specific [place] 1.015 Urine Protein 30 H Urine Glucose (UA) Normal Urine Ketones Negative Urine Occult Blood 25 H Urine Nitrite Negative Urine Bilirubin 3 H Urine Urobilinogen 1 H Ur Leukocyte Esterase 500 H Urine RBC 0 SEEN Urine WBC >100 SEEN Ur Squamous Epith Cells 0 SEEN Urine Bacteria 3+ Urine Mucus 0 SEEN 07/22/17 05:22 Hemoglobin A1c Lactic Acid Ammonia 13.0 Urine Color Urine Clarity Urine pH Ur Specific [place] Urine Protein Urine Glucose (UA) Urine Ketones Urine Occult Blood Urine Nitrite Urine Bilirubin Urine Urobilinogen Ur Leukocyte Esterase Urine RBC Urine WBC Ur Squamous Epith Cells Urine Bacteria Urine Mucus POC Glucose 07/22/17 07/21/17 07/21/17 00:55 15:55 12:52 POC Glucose 72 94 88 Assessment/Plan Impressions 1. severe sepsis - due to UTI 2. Metabolic encephalopathy secondary to infection, possible liver failure. will need to get the most recent liver profile done at the [facility] 3. hx of colon [place] with mets to the liver and the Left Lung...S/P upper lobe lobectomy and wedge resection of the left lower lobe in 2014. Recent liver biopsy at [facility] main [place] was negative for malignancy 4. Polycystic liver and kidney disease 5. Hyperbilirubinemia and increased alkaline phosphatase-secondary to cholestasis with normal transaminases 6. Coagulopathy-secondary to apixaban 7. History of asthma 8. Hypertension 9. History of SVT 10. Hypotension-resolved with fluid resuscitation 11. History of DVT-on apixaban Repeat blood cultures today. Cultures from the blood and the Castellanos drain are growing a gram-negative jalen. Urine culture is also growing a gram-negative jalen. Again discussed CODE STATUS with her and we are to continue aggressive management but he does not want intubation or chest compressions done. Prognosis is very poor for recovery. Not ready to have a talk with hospice or palliative yet. Continue current antibiotics Code Visit Inpatient E&M: 10242 Subs Hosp L3
--- NOTE | 2017-07-22 07:34 | PN_ITS ---
Subjective: Patient diagnosed with severe sepsis secondary to urinary tract infection. 2 of 2 blood cultures are positive for gram-negative rods. Urine is growing a gram-negative jalen. T-max is 100?F. Blood pressure is stable and her respiratory rate has been improving throughout the day. He is 92% saturated on a 4 L nasal cannula. Fluid balance since admission is +3476. Bilirubin and alkaline phosphatase are both decreasing. Her daughter states that the jaundice and scleral icterus just recently developed and today she states it looks better. The albumin is 1.6 and patient is third spacing fluids. Ammonia level was 13. Electrolytes are unremarkable. BUN is 43 with a creatinine of 2.14. Fractional excretion of sodium is 0.09 which is consistent with prerenal azotemia. Magnesium is low at 1.6 today. she is alert today but confused. Can not recall what is said to her after just a few minutes. She is less tachypneic. When I asked her if she was SOB she said yes and told me she only has 1 lung - Physical Exam General: Confused, Lethargic HEENT: Atraumatic, PERRLA, Normocephalic Oral: Dry Mucosa Neck: Supple, Trachea Midline Lungs: Diminished, Tachypneic, - - Poor inspiratory effort, rapid shallow respirations. Accessory muscle use. Not able to follow commands today. Cardiovascular: Regular Rhythm, Normal S1, Normal S2, No Gallop, Tachycardic Abdomen: Soft, Hypoactive Bowel Sounds, Distended - Distention is less today., - - No guarding with palpation Extremities: No edema Skin: No rashes Vital Signs Temp Pulse Resp BP Pulse Ox 98.0 F 93 24 H 107/64 93 07/22/17 03:51 07/22/17 03:51 07/22/17 03:51 07/22/17 03:51 07/22/17 03:51 Oxygen Flow Rate 4 Oxygen Delivery Method Nasal Cannula Weight: 174 lb 2.643 oz Body Mass Index (BMI) 30.8 Intake and Output for Last 24 Hours 07/20/17 07/21/17 07/22/17 23:59 23:59 23:59 Intake Total 1702 / 1702 1416 / 1416 Output Total 440 / 440 175 / 175 Balance 1262 / 1262 1241 / 1241 Microbiology Past 72 Hours 07/21/17 14:10 Blood Culture - Preliminary Blood Culture (Wb) - Left Hand 07/21/17 12:45 Blood Culture - Preliminary Blood Culture (Wb) - Wrist Laboratory Tests Past 24 Hrs 07/21/17 07/21/17 07/21/17 12:40 12:45 12:45 Hemoglobin A1c 5.0 Lactic Acid 1.0 Ammonia Urine Color Amanda Urine Clarity Cloudy Urine pH 5.0 Ur Specific [place] 1.015 Urine Protein 30 H Urine Glucose (UA) Normal Urine Ketones Negative Urine Occult Blood 25 H Urine Nitrite Negative Urine Bilirubin 3 H Urine Urobilinogen 1 H Ur Leukocyte Esterase 500 H Urine RBC 0 SEEN Urine WBC >100 SEEN Ur Squamous Epith Cells 0 SEEN Urine Bacteria 3+ Urine Mucus 0 SEEN 07/22/17 05:22 Hemoglobin A1c Lactic Acid Ammonia 13.0 Urine Color Urine Clarity Urine pH Ur Specific [place] Urine Protein Urine Glucose (UA) Urine Ketones Urine Occult Blood Urine Nitrite Urine Bilirubin Urine Urobilinogen Ur Leukocyte Esterase Urine RBC Urine WBC Ur Squamous Epith Cells Urine Bacteria Urine Mucus POC Glucose 07/22/17 07/21/17 07/21/17 00:55 15:55 12:52 POC Glucose 72 94 88 Assessment/Plan Impressions 1. severe sepsis - due to UTI 2. Metabolic encephalopathy secondary to infection, possible liver failure. will need to get the most recent liver profile done at the [facility] 3. hx of colon [place] with mets to the liver and the Left Lung...S/P upper lobe lobectomy and wedge resection of the left lower lobe in 2014. Recent liver biopsy at [facility] main [place] was negative for malignancy 4. Polycystic liver and kidney disease 5. Hyperbilirubinemia and increased alkaline phosphatase-secondary to cholestasis with normal transaminases 6. Coagulopathy-secondary to apixaban 7. History of asthma 8. Hypertension 9. History of SVT 10. Hypotension-resolved with fluid resuscitation 11. History of DVT-on apixaban Repeat blood cultures today. Cultures from the blood and the Castellanos drain are growing a gram-negative jalen. Urine culture is also growing a gram-negative jalen. Again discussed CODE STATUS with her and we are to continue aggressive management but he does not want intubation or chest compressions done. Prognosis is very poor for recovery. Not ready to have a talk with hospice or palliative yet. Continue current antibiotics Code Visit Inpatient E&M: 60374 Subs Hosp L3
[2017-07-22 07:51] LABS: Absolute Lymphocyte Count 0.96 X10^3/ul (0.83-4.51); Absolute Neutrophil Count 22.4 X10^3/uL (2.0-7.7); Basophil# 0.03 X10^3/uL; Basophil% 0.1 % (0-1); Differential Indicated SCAN CRITERIA MET; Eosinophil# 0.01 X10^3/uL; Hematocrit 30.3 % (37-47); Hemoglobin 9.3 g/dl (12.0-15.0); Lymphocyte # 0.96 X10^3/ul (4.0); Lymphocyte % 3.9 % (19-41); Mean Corp Hgb Conc 30.7 g/gl (32-36); Mean Corpuscular Volume 94.4 fL (81-99); Mean Platelet Vol. 10.4 fl (6.2-12.0); Monocyte# 1.04 X10^3/uL; Monocyte% 4.2 % (0-10); Neutrophil # 22.44 X10^3/uL (2.7-7.7); Neutrophil % 91.5 % (47-70); POSITIVE COUNT NO; POSITIVE DIFFERENTIAL YES; POSITIVE MORPHOLOGY NO; Platelet Count 217 K/mm3 (150-450); RBC Distribution Width CV 17.2 % (11.6-14.6); RBC Distribution Width SD 59.5 fl (35.1-43.9); Red Blood Count 3.21 M/mm3 (4.2-5.4); White Blood Count 24.6 K/mm3 (4.4-11.0)
--- NOTE | 2017-07-22 08:01 | CPS ---
pt will not keep oxygen on, in the room and just wants her comfortable.
[2017-07-22 08:13] LABS: ALB/GLOB Ratio 0.4 RATIO (0.9-2.4); AST(SGOT) 28 U/L (15-37); Alanine Aminotransfer ALT/SGPT 20 U/L (12-78); Albumin, Serum 1.6 g/dL (3.4-5.0); Alkaline Phosphatase 519 U/L (45-117); Anion Gap 13 (5-15); BUN 43 mg/dL (7-18); BUN/Creat Ratio 20.1 RATIO (10-20); Calcium,Total 7.9 mg/dL (8.5-10.1); Chloride 109 mmol/L (98-107); Creatinine, Serum 2.14 mg/dL (0.55-1.02); EST Glomerular Filtration Rate 24 mL/min (>60); Est Glom Filt Rate - Afr Amer 29 mL/min (>60); Estimated Creatinine Clearance 18.79 ml/min; Globulin 4.5 g/dL (2.2-4.2); Glucose 73 mg/dL (70-110); Magnesium 1.6 mg/dL (1.8-2.4); Phosphorus 4.6 mg/dL (2.5-4.9); Potassium 4.3 mmol/L (3.5-5.1); Protein, Total 6.1 g/dL (6.4-8.2); Sodium Level 145 mmol/L (136-145)
[2017-07-22 08:26] LABS: Bedside Glucose 92 mg/dL (70-110)
[2017-07-22 09:07] LABS: International Normalized Ratio 2.3
--- NOTE | 2017-07-22 09:29 | CASEMGMT ---
Social Work Face to face with the pt and his to discuss discharge planning. Introduced self and role at [facility]. Pt and spouse known to SW from doing admission assessment on TCU. Pt and spouse anticipate returning to TCU upon medical stabilization. Deny any further needs and were made aware that SW is available if needs arise. Placed call to Bebe on TCU to inform that they do intend on returning to TCU at discharge from [place]. Plan: TCU for continued rehabilitation. Maryann Thomas, SANITATION TECHNICIAN [employer]
[2017-07-22 11:31] LABS: Bedside Glucose 87 mg/dL (70-110)
[2017-07-22 13:30] LABS: Urine Sodium 6 mmol/L (Not Establ.)
--- NOTE | 2017-07-22 14:55 | NURSING ---
Cefepime missing at 10am dose, called pharmacy and they said they would look into it. Called back again at 1430 after still not receiving it and they said they would send it.
[2017-07-22 17:20] LABS: Bedside Glucose 122 mg/dL (70-110)
[2017-07-23] MEDS: 0.9% NaCl Peripheral Flush Adult/Peds IV ×3 (00:48→13:49)
[2017-07-23 02:20] VITALS: BP 173/97; PULSE 107; RESP 28; TEMP 36.6; O2SAT 92
[2017-07-23] MEDS: Nystatin Powder 15gm Bottle 1 APPLIC TOPICAL ×2 (05:14→14:46)
[2017-07-23 06:37] LABS: ALB/GLOB Ratio 0.5 RATIO (0.9-2.4); AST(SGOT) 22 U/L (15-37); Alanine Aminotransfer ALT/SGPT 17 U/L (12-78); Albumin, Serum 2.2 g/dL (3.4-5.0); Alkaline Phosphatase 427 U/L (45-117); Anion Gap 11 (5-15); BUN 47 mg/dL (7-18); Calcium,Total 8.1 mg/dL (8.5-10.1); Chloride 110 mmol/L (98-107); Creatinine, Serum 2.24 mg/dL (0.55-1.02); EST Glomerular Filtration Rate 23 mL/min (>60); Est Glom Filt Rate - Afr Amer 27 mL/min (>60); Estimated Creatinine Clearance 17.95 ml/min; Globulin 4.3 g/dL (2.2-4.2); Glucose 123 mg/dL (70-110); Magnesium 2.2 mg/dL (1.8-2.4); Potassium 4.2 mmol/L (3.5-5.1); Protein, Total 6.5 g/dL (6.4-8.2); Sodium Level 143 mmol/L (136-145)
[2017-07-23 06:55] LABS: Absolute Lymphocyte Count 0.97 X10^3/ul (0.83-4.51); Absolute Neutrophil Count 19.6 X10^3/uL (2.0-7.7); Basophil# 0.03 X10^3/uL; Basophil% 0.1 % (0-1); Eosinophil# 0.01 X10^3/uL; Hematocrit 29.9 % (37-47); Hemoglobin 9.4 g/dl (12.0-15.0); Lymphocyte # 0.97 X10^3/ul (4.0); Lymphocyte % 4.4 % (19-41); Mean Corp Hgb Conc 31.4 g/gl (32-36); Mean Corpuscular Hgb 28.9 pg (27.0-32.0); Mean Platelet Vol. 10.7 fl (6.2-12.0); Monocyte# 1.35 X10^3/uL; Monocyte% 6.1 % (0-10); Neutrophil # 19.62 X10^3/uL (2.7-7.7); Neutrophil % 88.9 % (47-70); POSITIVE COUNT NO; POSITIVE DIFFERENTIAL NO; POSITIVE MORPHOLOGY NO; Platelet Count 255 K/mm3 (150-450); RBC Distribution Width SD 57.3 fl (35.1-43.9); Red Blood Count 3.25 M/mm3 (4.2-5.4); White Blood Count 22.1 K/mm3 (4.4-11.0)
[2017-07-23 07:15] VITALS: PULSE 107; RESP 18; O2SAT 93
[2017-07-23] MEDS: Ipratropium/Albuterol Sulfate 3 ML AMPUL.NEB INHALATION ×3 (07:15→15:18)
[2017-07-23] MEDS: Haloperidol Lactate 5 MG/ML Vial 2 MG IM (09:22)
[2017-07-23 10:22] VITALS: BP 157/89; PULSE 115; RESP 22; TEMP 36.9; O2SAT 92
[2017-07-23 10:24] VITALS: PULSE 120
[2017-07-23 11:44] VITALS: PULSE 117; RESP 22; O2SAT 90
--- NOTE | 2017-07-23 14:01 | NURSING ---
UP ON UNIT IN TO SEE PT, TALKED WITH BOTH THIS NURSE AND PRIMARY RN. REQUESTING WE GIVE ROXANOL AND ATIVAN SOON IT'S AVAILABLE PT WAS ABLE TO OPEN EYES AND ANSWER YES WHEN SHE WAS ASKED IF SHE'S IN PAIN. SEE MAR ROXANOL TO BE GIVEN, AWAITING ATIVAN FROM PHARMACY.
--- NOTE | 2017-07-23 14:06 | PCM.DC.SUM ---
Discharge Date and Diagnosis - Problem List Patient Problems: Active and Suspected Problems Severe sepsis (Acute) Date of Admission: 07/21/17 Date of Discharge: 07/23/17 - Primary Discharge Diagnosis Active and Suspected Problems Severe sepsis (Acute) due to UTI due to Enterobacter Aerogenes Metabolic encephalopathy due to sepsis ARF due to sepsis Hypotension - resolved with hydration - Secondary Discharge Diagnosis Chronic Problems Asthma (Chronic) Benign hypertension (Chronic) Obesity (Chronic) H/O adult polycystic kidney disease (Chronic) Supraventricular tachycardia (Chronic) Metastatic colon cancer in female (Chronic) Colon cancer metastasized to lung (Chronic) Polycystic kidney disease (Chronic) Hypertension (Chronic) Gastrointestinal bleed (Chronic) DVT (deep venous thrombosis) (Chronic) Osteoporosis (Chronic) Migraine (Chronic) Colon cancer (Chronic) Hospital Course and Treatment Imaging Results: Clinical Impression(s) from Imaging Studies Chest X-Ray 07/20/17 21:07 IMPRESSION: Very poor inspiration. Marked elevation of the left hemidiaphragm. Left basilar atelectasis. Gaseous distention of the stomach. Calcified plaques of the aortic arch. Chest findings are stable in the interval. Electronically Signed: Carlos Holguin MD at 21:58 EST , Service support , Chest CTA 07/20/17 22:04 IMPRESSION: 1. There is no evidence of pulmonary embolism. 2. There is a very poor inspiration. There is a markedly elevated left hemidiaphragm with underlying gaseous distention of the stomach. 3. There are again noted innumerable low-attenuation foci involving the bulk of the hepatic parenchyma consistent with extensive metastatic disease. 4. Other findings as reported above. Findings are similar to the previous day's study. Electronically Signed: Carlos Holguin MD at 23:52 EST , Service support , Abdomen/Pelvis CT 07/21/17 12:12 IMPRESSION: Hepatomegaly. Multiple cysts are seen in the liver. Enlarged kidneys with multiple bilateral cysts. Prior cholecystectomy. Surgical clips are seen in the region of the giovanny hepatis. Pneumobilia. A small amount of free fluid is seen in the pelvis. Electronically Signed: James Werner MD at 14:26 EST Tel [phone], Service support , none Operations: None Procedures: None Summary of Care Provided: Patient is a 76-year-old female with history of colon cancer metastatic to lung and liver. She was recently at [facility] for ERCP with stent and a liver biopsy which was negative for malignancy. At [place] from [facility] she was transferred to [facility] for strengthening and rehab prior to going home. She follows with Dr. Tristan and last saw him 2 months ago. Her past medical history is significant for asthma, hypertension, polycystic kidney and liver disease, SVT, DVT, osteoporosis, migraines and history of GI bleeds. She was sent to the emergency room from TCU on 07/20 with a pulse ox of 75% on room air. She was short of breath and complained of chest pain on the . The history and physical note states that the patient was having agonal respirations and discussion was held with her a DNR CC code order was placed. Lab done on 07/20 showed an elevated white blood cell count at 24.2 with a marked left shift. Hemoglobin was 11.2 and platelets were within normal limits. ABG done on a 6 L nasal cannula showed a pH of 7.38 with PCO2 of 44 and a PO2 of 67. BUN was 33 and the creatinine was elevated at 1.71( from 1.1 at admission to the TCU). Orders for comfort medications were instituted at admission. The following morning when the patient was still alive her changed the code status to DNR CCA . A UA was obtained and showed greater than 100 WBCs per high-power field with 3+ bacteria. Blood and urine cultures were sent. A chest x-ray showed no evidence of infiltrates. A CT scan of the abdomen and pelvis showed multiple cysts in the liver and the kidneys. There was pneumobilia likely secondary to recent ERCP and stent placement. There were no other acute findings. She was started on Zosyn. She became more awake the following day but remained confused. Antibiotics and supportive care was continued. Apparently overnight the dtr called hospice and she arranged for them to meet her at the hospital on 07/23. On the morning of 07/23 she was tachycardic and c/o severe pain. Respirations were rapid and shallow. Pulse ox on 3.5 liters was 90%. Antibiotics, IVF's and any medications not needed for medication were discontinued. She was started on Ativan Intensol, SL Roxanol and Atropine drops. The hospice charter representative met with the family and they signed up with hospice. At this time she is appropriate for transfer to the inpatient hospice center for sx management. Code status was changed to DNR CC and the patient will be transported by ambulance. This note was generated with [employer] dictation software. It may contain incorrect words, spelling, and punctuation that were not noted in checking the note before signing. Home Medications: Medications to take at Discharge Tiotropium [place] [Spiriva 18 MCG] 1 puff INHALATION DAILY 01/09/16 Acetaminophen [Tylenol Tablet] 1,000 mg PO Q8H PRN PRN 02/02/16 Ondansetron [Zofran] 4 mg PO Q8H PRN PRN 02/02/16 Lorazepam [Ativan] 0.5 mg PO QHS PRN PRN #30 tablet 03/06/16 Ergocalciferol [Vitamin D] 50,000 unit PO Q14D 07/13/17 Furosemide [Lasix] 20 mg PO DAILY 07/13/17 Levothyroxine [Synthroid] 100 mcg PO DAILY@0600 07/13/17 Metoprolol Tartrate [Lopressor] 100 mg PO BID 07/13/17 Montelukast Sodium [Singulair] 10 mg PO DAILY 07/13/17 Oxycodone [Oxyir] 5 mg PO Q6H PRN PRN 07/13/17 Pantoprazole Sodium [Protonix] 40 mg PO BID 07/13/17 Apixaban [Eliquis] 2.5 mg PO BID 07/20/17 Bisacodyl [Dulcolax] 5 mg PO DAILY PRN PRN 07/20/17 Clotrimazole/Betamethasone [Lotrisone] 1 applic TOPICAL BID 07/20/17 Ensure Clear 120 ml PO 4X/DAY 07/20/17 Fluticasone 0.05% [Flonase Nasal [place]] 2 spray NASAL DAILY 07/20/17 Ipratropium/Albuterol Sulfate [Duoneb] 3 ml INHALATION Q4H.RT 07/20/17 Losartan Potassium [Cozaar] 50 mg PO DAILY 07/20/17 Menthol/Lanolin/Calamine/Znox [Calmoseptine Ointment] 1 applic TP TID 07/20/17 Nystatin 500,000 unit PO 4X/DAY 07/20/17 Nystatin Powder [Mycostatin Powder] 1 applic TOPICAL TID 07/20/17 Polyethylene Glycol 3350 [Miralax] 17 gm PO DAILY 07/20/17 Rizatriptan Benzoate [Maxalt [employer]] 10 mg PO PRN PRN 07/20/17 Senna/Docusate Sodium [Senokot-S, Rama-Colace] 2 tablet PO BID 07/20/17 Primary Care Physician: Gume Rascon MD [Primary Care Provider] - Disposition: Hospice Medical Facility Minutes spent on discharge:: 35 Patient Condition:: Critical Meaningful Use Info Meaningful Use Diagnoses (Choose all that apply): None applicable Code Visit Inpatient E&M: 83399 Disch Hosp
--- NOTE | 2017-07-23 14:19 | DS.PCM_ITS ---
Discharge Date and Diagnosis - Problem List Patient Problems: Active and Suspected Problems Severe sepsis (Acute) Date of Admission: 07/21/17 Date of Discharge: 07/23/17 - Primary Discharge Diagnosis Active and Suspected Problems Severe sepsis (Acute) due to UTI due to Enterobacter Aerogenes Metabolic encephalopathy due to sepsis ARF due to sepsis Hypotension - resolved with hydration - Secondary Discharge Diagnosis Chronic Problems Asthma (Chronic) Benign hypertension (Chronic) Obesity (Chronic) H/O adult polycystic kidney disease (Chronic) Supraventricular tachycardia (Chronic) Metastatic colon cancer in female (Chronic) Colon cancer metastasized to lung (Chronic) Polycystic kidney disease (Chronic) Hypertension (Chronic) Gastrointestinal bleed (Chronic) DVT (deep venous thrombosis) (Chronic) Osteoporosis (Chronic) Migraine (Chronic) Colon cancer (Chronic) Hospital Course and Treatment Imaging Results: Clinical Impression(s) from Imaging Studies Chest X-Ray 07/20/17 21:07 IMPRESSION: Very poor inspiration. Marked elevation of the left hemidiaphragm. Left basilar atelectasis. Gaseous distention of the stomach. Calcified plaques of the aortic arch. Chest findings are stable in the interval. Electronically Signed: Carlos Holguin MD at 21:58 EST , Service support , Chest CTA 07/20/17 22:04 IMPRESSION: 1. There is no evidence of pulmonary embolism. 2. There is a very poor inspiration. There is a markedly elevated left hemidiaphragm with underlying gaseous distention of the stomach. 3. There are again noted innumerable low-attenuation foci involving the bulk of the hepatic parenchyma consistent with extensive metastatic disease. 4. Other findings as reported above. Findings are similar to the previous day's study. Electronically Signed: Carlos Holguin MD at 23:52 EST , Service support , Abdomen/Pelvis CT 07/21/17 12:12 IMPRESSION: Hepatomegaly. Multiple cysts are seen in the liver. Enlarged kidneys with multiple bilateral cysts. Prior cholecystectomy. Surgical clips are seen in the region of the giovanny hepatis. Pneumobilia. A small amount of free fluid is seen in the pelvis. Electronically Signed: James Werner MD at 14:26 EST Tel [phone], Service support , none Operations: None Procedures: None Summary of Care Provided: Patient is a 76-year-old female with history of colon cancer metastatic to lung and liver. She was recently at [facility] for ERCP with stent and a liver biopsy which was negative for malignancy. At [place] from [facility] she was transferred to [facility] for strengthening and rehab prior to going home. She follows with Dr. Tristan and last saw him 2 months ago. Her past medical history is significant for asthma, hypertension, polycystic kidney and liver disease, SVT, DVT, osteoporosis, migraines and history of GI bleeds. She was sent to the emergency room from TCU on 07/20 with a pulse ox of 75% on room air. She was short of breath and complained of chest pain on the . The history and physical note states that the patient was having agonal respirations and discussion was held with her a DNR CC code order was placed. Lab done on 07/20 showed an elevated white blood cell count at 24.2 with a marked left shift. Hemoglobin was 11.2 and platelets were within normal limits. ABG done on a 6 L nasal cannula showed a pH of 7.38 with PCO2 of 44 and a PO2 of 67. BUN was 33 and the creatinine was elevated at 1.71( from 1.1 at admission to the TCU). Orders for comfort medications were instituted at admission. The following morning when the patient was still alive her changed the code status to DNR CCA . A UA was obtained and showed greater than 100 WBCs per high -power field with 3+ bacteria. Blood and urine cultures were sent. A chest x- ray showed no evidence of infiltrates. A CT scan of the abdomen and pelvis showed multiple cysts in the liver and the kidneys. There was pneumobilia likely secondary to recent ERCP and stent placement. There were no other acute findings. She was started on Zosyn. She became more awake the following day but remained confused. Antibiotics and supportive care was continued. Apparently overnight the dtr called hospice and she arranged for them to meet her at the hospital on 07/23. On the morning of 07/23 she was tachycardic and c /o severe pain. Respirations were rapid and shallow. Pulse ox on 3.5 liters was 90%. Antibiotics, IVF's and any medications not needed for medication were discontinued. She was started on Ativan Intensol, SL Roxanol and Atropine drops. The hospice fundraising sale representative met with the family and they signed up with hospice. At this time she is appropriate for transfer to the inpatient hospice center for sx management. Code status was changed to DNR CC and the patient will be transported by ambulance. This note was generated with [employer] dictation software. It may contain incorrect words, spelling, and punctuation that were not noted in checking the note before signing. Home Medications: Medications to take at Discharge Tiotropium [place] [Spiriva 18 MCG] 1 puff INHALATION DAILY 01/09/16 Acetaminophen [Tylenol Tablet] 1,000 mg PO Q8H PRN PRN 02/02/16 Ondansetron [Zofran] 4 mg PO Q8H PRN PRN 02/02/16 Lorazepam [Ativan] 0.5 mg PO QHS PRN PRN #30 tablet 03/06/16 Ergocalciferol [Vitamin D] 50,000 unit PO Q14D 07/13/17 Furosemide [Lasix] 20 mg PO DAILY 07/13/17 Levothyroxine [Synthroid] 100 mcg PO DAILY@0600 07/13/17 Metoprolol Tartrate [Lopressor] 100 mg PO BID 07/13/17 Montelukast Sodium [Singulair] 10 mg PO DAILY 07/13/17 Oxycodone [Oxyir] 5 mg PO Q6H PRN PRN 07/13/17 Pantoprazole Sodium [Protonix] 40 mg PO BID 07/13/17 Apixaban [Eliquis] 2.5 mg PO BID 07/20/17 Bisacodyl [Dulcolax] 5 mg PO DAILY PRN PRN 07/20/17 Clotrimazole/Betamethasone [Lotrisone] 1 applic TOPICAL BID 07/20/17 Ensure Clear 120 ml PO 4X/DAY 07/20/17 Fluticasone 0.05% [Flonase Nasal [place]] 2 spray NASAL DAILY 07/20/17 Ipratropium/Albuterol Sulfate [Duoneb] 3 ml INHALATION Q4H.RT 07/20/17 Losartan Potassium [Cozaar] 50 mg PO DAILY 07/20/17 Menthol/Lanolin/Calamine/Znox [Calmoseptine Ointment] 1 applic TP TID 07/20/17 Nystatin 500,000 unit PO 4X/DAY 07/20/17 Nystatin Powder [Mycostatin Powder] 1 applic TOPICAL TID 07/20/17 Polyethylene Glycol 3350 [Miralax] 17 gm PO DAILY 07/20/17 Rizatriptan Benzoate [[employer]] 10 mg PO PRN PRN 07/20/17 Senna/Docusate Sodium [Senokot-S, Rama-Colace] 2 tablet PO BID 07/20/17 Primary Care Physician: Gume Rascon MD [Primary Care Provider] - Disposition: Hospice Medical Facility Minutes spent on discharge:: 35 Patient Condition:: Critical Meaningful Use Info Meaningful Use Diagnoses (Choose all that apply): None applicable Code Visit Inpatient E&M: 14047 Disch Hosp
[2017-07-23 15:15] VITALS: PULSE 115; RESP 18
--- NOTE | 2017-07-23 15:39 | CASEMGMT ---
Pt was seen by hospice this afternoon, and pt will be moved to the inpt hospice unit this evening at 6:30pm. SW left a message for Bebe in TCU letting her know that pt will be going to the inpt hospice unit. EVELYN Butts, BLOWER MECHANIC
[2017-07-23] MEDS: LORazepam 2 MG/ML Bottle 1 MG SL (15:50)
[2017-07-23] MEDS: Atropine Sulfate 1% 2 ml Bottle 4 DRP PO (16:50)
--- NOTE | 2017-07-23 17:32 | NURSING ---
Report called to Nimo at the Hospice care center.
== END 2017-07-23 18:49 | disposition hospice, inpatient (51) | DRG 871 ==
LOC: ED 21:34 → MS3 07-21 01:56
PROVIDERS: Emergency Provider Emergency Medicine; Family Provider Internal Medicine; PCP Internal Medicine; Visit Provider Internal Medicine
DX: A41.9 Sepsis, unspecified organism (principal); G93.41 Metabolic encephalopathy; J96.00 Acute respiratory failure, unspecified whether with hypoxia or hypercapnia; N17.9 Acute kidney failure, unspecified; I95.9 Hypotension, unspecified; C78.02 Secondary malignant neoplasm of left lung; C78.7 Secondary malignant neoplasm of liver and intrahepatic bile duct; K72.90 Hepatic failure, unspecified without coma; N39.0 Urinary tract infection, site not specified; Q44.6 Cystic disease of liver; I47.1 Supraventricular tachycardia; Q61.2 Polycystic kidney, adult type; B96.89 Other specified bacterial agents as the cause of diseases classified elsewhere; R79.1 Abnormal coagulation profile; T45.515A Adverse effect of anticoagulants, initial encounter; Y92.9 Unspecified place or not applicable; R65.20 Severe sepsis without septic shock; I10 Essential (primary) hypertension; J45.909 Unspecified asthma, uncomplicated; M81.0 Age-related osteoporosis without current pathological fracture; F41.9 Anxiety disorder, unspecified; Z66 Do not resuscitate; E66.9 Obesity, unspecified; Z68.30 Body mass index [BMI] 30.0-30.9, adult; Z79.01 Long term (current) use of anticoagulants; Z79.899 Other long term (current) drug therapy; Z85.038 Personal history of other malignant neoplasm of large intestine; Z86.718 Personal history of other venous thrombosis and embolism; Z87.891 Personal history of nicotine dependence; Z90.2 Acquired absence of lung [part of]; Z90.49 Acquired absence of other specified parts of digestive tract; Z90.710 Acquired absence of both cervix and uterus
CPT/HCPCS: 36415; 36600; 71010; 71275; 74176; 80053; 81001; 82140; 82570; 82803; 82962; 83036; 83605; 83735; 84100; 84300; 84484; 85025; 85610; 85730; 87040; 87070; 87075; 87077; 87086; 87088; 87186; 87205; 92610; 93005; 94640; 99282; J7030; J7040; J7120; P9047; Q9967; A4216